=== PATIENT | male | born 1995 | race African-American/Black ===

== ENCOUNTER 2021-03-18 17:20 | Emergency (ER) | payer OTHER ==
[~2021-03-18] VITALS: Ht 177.8 cm; Wt 84.1 kg
[2021-03-18 17:21] VITALS: TEMP 98.3
[2021-03-18 17:56] LABS: BASO % 0.3 % (0.0-2.0); EOS % 0.3 % (0-4.0); GRAN # 7.1 (1.4-6.5); GRAN % 78.3 % (42.2-75.2); HEMATOCRIT 41.1 % (42.0-52.0); HEMOGLOBIN 13.9 g/dl (13.5-18.0); LYMPH # 1.4 (1.2-3.4); LYMPH % 15.1 % (20.0-51.0); MEAN CELL VOLUME 87 fl (80.0-100.0); MEAN CORPUSCULAR HEMOGLOBIN 29 pg (27.0-31.0); MEAN CORPUSCULAR HGB CONC 34 g/dl (33.0-37.0); MEAN PLATELET VOLUME 9.8 fl (7.4-10.4); MONO # 0.5 (0.1-0.6); MONO % 5.3 % (1.7-9.3); PLATELET COUNT 268 K/mm3 (130-400); RED BLOOD COUNT 4.75 M/mm3 (4.20-5.60); REDCELL DISTRIBUTION WIDTH-CV 13.7 % (11.5-14.5)
[2021-03-18 18:20] LABS: ALANINE AMINOTRANSFERASE 13 U/L (0-55); ALKALINE PHOSPHATASE 64 U/L (0-750); ANION GAP 9 mmol/L (7-16); AST,SGOT 17 U/L (5-34); BILIRUBIN,TOTAL 0.5 mg/dL (0.2-1.2); BLOOD UREA NITROGEN 8 mg/dL (9-21); CALCIUM 8.8 mg/dL (8.4-10.2); CARBON DIOXIDE 21 mmol/L (22-29); CHLORIDE 110 mmol/L (98-107); CREATININE, serum 1.07 mg/dL (0.72-1.25); GLUCOSE 90 mg/dL (70-99); POTASSIUM 3.9 mmol/L (3.5-4.5); SODIUM 140 mmol/L (136-145); TOTAL PROTEIN 6.9 gm/dL (6.2-8.1)
[2021-03-18 18:24] LABS: ALCOHOL(ethanol),MEDICAL < 10 mg/dL (0-10)
[2021-03-18 20:55] VITALS: BP 104/74; PULSE 83
== END 2021-03-18 20:55 | disposition short-term general hospital (02) ==
LOC: EDBD 17:20 → COL.ER 17:20
PROVIDERS: Family Medicine
DX: S72.391A Other fracture of shaft of right femur, initial encounter for closed fracture (principal); V29.9XXA Motorcycle rider (driver) (passenger) injured in unspecified traffic accident, initial encounter
CPT/HCPCS: J1170; J2270; J2405; J7120

== ENCOUNTER 2022-02-18 14:43 | Day surgery (SDC) | payer OTHER ==
[~2022-02-18] VITALS: Ht 175.3 cm; Wt 68.2 kg
[2022-02-18] MEDS ORDERED: TYLENOL 500MG500 MG PO (15:28)
[2022-02-18] MEDS ORDERED: FLOMAX 0.40.4 MG/CAP PO (15:28)
[2022-02-18 15:41] VITALS: BP 126/77; PULSE 72; TEMP 98
[2022-02-18] MEDS ORDERED: NORCO 325 MG-51 TAB PO (16:29)
[2022-02-18] MEDS ORDERED: PYRIDIUM 100MG100 MG PO (16:29)
[2022-02-18 18:00] VITALS: BP 136/83; PULSE 59; TEMP 97.9
--- NOTE | 2022-02-18 18:00 | NUR ---
Pt. arrived to the floor from PACU. Pt. is A&OX3, assessment complete. Pt. reports pain at a 5 on pain scale, gave pain meds per orders. Vital stable.
[2022-02-18 18:15] VITALS: BP 124/83; PULSE 58; TEMP 98
[2022-02-18 18:30] VITALS: BP 127/73; PULSE 60; TEMP 98
--- NOTE | 2022-02-18 18:45 | NUR ---
Pt. has met discharge criteria. Gave pt. discharge instructions, education, info on new scripts, and reviewed home meds. Pt. voices understanding. INT discontinued from rt. AC. PLASTIC SURGERY COORDINATOR escorted pt. out.
== END 2022-02-18 18:45 | disposition home or self-care (01) ==
LOC: SDCO 14:43 → SURG 18:28 → SDCO 18:45
DX: N13.2 Hydronephrosis with renal and ureteral calculous obstruction (principal)
CPT/HCPCS: OP; C1769; C2617; J0690; J1100; J1170; J1885; J2405; J2704; J3010; J7120; Q9967